=== PATIENT | female | born 2000 | race Caucasian/White ===

== ENCOUNTER 2023-09-05 09:00 | Emergency (ER) | payer MEDICAID ==
[2023-09-05 09:15] VITALS: BP 126/86; TEMP 98.6
--- NOTE | 2023-09-05 09:19 | ERPHSYRPT ---
- History of Present Illness Time Seen by Provider: 09/05/23 09:19 Source: patient Exam Limitations: no limitations Patient Subjective Stated Complaint: Pt states that she has had a migraine for the past 5 days Triage Nursing Assessment: Pt was brought to the ER by her srikanth ortiz, rates pain as 8/10 and states that it does go up to a 10, pt denies N&V, pt states that she has some dizziness, reports getting migraines but only takes IBU but has not taken anything since yesterday evening, pulses normal, skin n/w/d, doesn't appear to be in any distress Physician History: This is a 23-year-old white female who presents with migraine headache type pain. It is intense and much worse than her other migraine headaches. The pain is intermittently localized in various locations the back of her head neck and frontal area. She has discomfort in her eyes with lights and discomfort in her head with loud noises. Patient last took ibuprofen yesterday without benefit. She denies chest pain. She denies shortness of breath. Timing/Duration: day(s) (5) Head Pain Location: frontal, temporal, occipital Severity of Pain-Max: moderate Severity of Pain-Current: moderate Recent Head Trauma: no recent headache/trauma Modifying Factors: Improves With: exposure to light (Worsens), noise (Worsens) Associated Symptoms: sensitive to light, No loss of consciousness, No neck pain, No stiff neck Previous symptoms: same symptoms as today (But pain is much worse) Allergies/Adverse Reactions: No Known Drug Allergies Allergy (Verified 09/05/23 09:15) Home Medications: No Reportable Medications [No Reported Medications] 09/05/23 [History] Immunizations Up to Date: Yes Travel Risk - International Travel Have you traveled outside of the country in past 3 weeks: No - Coronavirus Screening Are you exhibiting any of the following symptoms?: No - Vaccine Status Have you recieved a Covid-19 vaccination: No - Review of Systems Constitutional: No Symptoms Eyes: No Symptoms Ears, Nose, & Throat: No Symptoms Respiratory: No Symptoms Cardiac: No Symptoms Abdominal/Gastrointestinal: No Symptoms Genitourinary Symptoms: No Symptoms Musculoskeletal: No Symptoms Skin: No Symptoms Neurological: Headache Psychological: No Symptoms Endocrine: No Symptoms Hematologic/Lymphatic: No Symptoms Immunological/Allergic: No Symptoms All Other Systems: Reviewed and Negative - Past Medical History Pertinent Past Medical History: Yes History: Other Other Medical History: anemic while and required transfusions. kidney stones causing hyrdornephrosis - Past Surgical History Past Surgical History: No - Social History Smoking Status: Former smoker Exposure to second hand smoke: No Drug Use: none Patient Lives Alone: No - Female History Hx Last Menstrual Period: 2 weeks ago Hx Now: No (IUD) - Nursing Vital Signs Nursing Vital Signs: Initial Vital Signs Temperature 98.6 F 09/05/23 09:06 Pulse Rate 87 09/05/23 09:06 Blood Pressure 126/86 09/05/23 09:06 O2 Sat by Pulse Oximetry 100 09/05/23 09:06 Pain Scale Pain Intensity 8 - Physical Exam General Appearance: no apparent distress, alert, anxiety Eye Exam: PERRL/EOMI, eyes nml inspection Ears, Nose, Throat Exam: normal ENT inspection, moist mucous membranes Neck Exam: normal inspection, non-tender, supple, full range of motion Respiratory Exam: normal breath sounds, lungs clear, No chest tenderness, No respiratory distress Cardiovascular Exam: regular rate/rhythm, normal heart sounds, normal peripheral pulses Gastrointestinal/Abdominal Exam: No tenderness Back Exam: normal inspection, normal range of motion, No CVA tenderness Extremity Exam: normal inspection, normal range of motion, pelvis stable Mental Status Exam: alert, oriented x 3, 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 The level complexity in the work-up performed based on review of the patient's past medical history, review the patient's medication list, review of the patient's drug allergy list, history of present illness and physical findings on examination. The work-up in this patient does not require any laboratory studies but we will order a CT scan of the head without contrast. Blood Culture(s) Obtained: No Antibiotics given: No Counseled pt/family regarding: diagnosis, need for follow-up, rad results Medical Desision Making - Independent Historian Additional History obtained from: Family - Diagnostic Testing Diagnostic test were ordered, analyzed, and reviewed by me: Yes Radiological Interpretation: Reviewed by me, Teleradiologist Report - Risk of complications Minimal Risk: Minimal risk of morbidity - Departure Departure Disposition: Home Clinical Impression: Migraine headache Condition: Stable Critical Care Time: No Additional Instructions: Use Tylenol and ibuprofen for persistent headache pain. We provided you with a list of providers that are accepting patients. Contact 1 of these providers to obtain appointment for further evaluation management.
--- NOTE | 2023-09-05 09:54 | XRAY ---
Indication: Headache. Multiple contiguous axial images obtained through the head without contrast. Comparison: None Beam artifact from left ear jewelry which patient could not remove. Grossly normal appearing brain parenchyma, ventricles, and bony calvarium. Visualized paranasal sinuses and mastoid air cells are clear. Impression: Beam artifact. No gross acute intracranial abnormalities.
[2023-09-05 10:10] VITALS: PULSE 77
[2023-09-05 10:11] VITALS: O2SAT 100
[2023-09-05] MEDS ORDERED: TORAdol 30 mg Injection ONE (10:15)
[2023-09-05] MEDS ORDERED: Compazine 10 MG/2 ML ONE (10:15)
[2023-09-05] MEDS ORDERED: BENADRYL 50 MG/ML ONE (10:15)
[2023-09-05] MEDS ORDERED: NORCO 5/325 MG ONE (10:15)
[2023-09-05] MEDS: Compazine 10 MG/2 ML IM ONE (10:16)
[2023-09-05] MEDS: BENADRYL 50 MG/ML IM ONE (10:16)
[2023-09-05] MEDS: NORCO 5/325 MG PO ONE (10:17)
[2023-09-05] MEDS: TORAdol 30 mg Injection IM ONE (10:17)
== END 2023-09-05 10:45 | disposition home or self-care (01) ==
LOC: ED 09:00
DX: G43.909 Migraine, unspecified, not intractable, without status migrainosus (principal); Z28.310 Unvaccinated for COVID-19
CPT/HCPCS: 70450; 96372; 99283; J1200; J1885; A9270-GY

== ENCOUNTER 2025-02-17 19:28 | Emergency (ER) | payer BC, OTHER ==
[2025-02-17 21:28] VITALS: RESP 16; TEMP 97.7; O2SAT 100
--- NOTE | 2025-02-17 21:51 | ERPHSYRPT ---
- History of Present Illness Time Seen by Provider: 02/17/25 21:20 Source: patient Exam Limitations: no limitations Patient Subjective Stated Complaint: pt states that she found a tick on her stomach. pt states that the rash is getting worse. pt states that her OB doctor prescribed her amoxicillin but she is unable to keep it down Triage Nursing Assessment: pt ambulated into the er; pt is axo x4; c/o rash; pt denies pain; pt states itching to LUQ; rash present to LUQ; no respiratory distress present; vitals wnl Physician History: 24-year-old female currently 14 weeks presents to our ED for evaluation. Patient is concerned as she was diagnosed with a tick bite and erythema migrans. Patient was prescribed amoxicillin 500 mg 3 times a day for 14 days by her [employer] physician. Patient states that the amoxicillin has been causing her to vomit approximately 30 minutes after ingesting. No other systemic manifestations. Patient has not taken the amoxicillin because of the vomiting. Patient states that the erythema migrans has gotten somewhat worse. Patient has no systemic manifestations otherwise. Patient was able to hold down her last dose of amoxicillin. However she is concerned with the vomiting that occurs about 30 minutes afterwards. Patient otherwise feels well. She is not having any complications with regard to her . No abdominal pain pelvic cramping or discharge. Significant other at bedside. They voiced no other complaints or concerns at this time. Portions of this note were created with voice recognition technology. There may be grammatical, spelling, punctuation or sound alike errors Timing/Duration: today Severity: moderate Modifying Factors: Improves With: nothing Associated Symptoms: denies symptoms Allergies/Adverse Reactions: No Known Drug Allergies Allergy (Verified 08/14/24 14:48) Home Medications: Amoxicillin 500 mg PO TID 02/17/25 [History] Hx Tetanus, Diphtheria Vaccination/Date Given: No Hx Influenza Vaccination/Date Given: No Hx Pneumococcal Vaccination/Date Given: No Travel Risk - International Travel Have you traveled outside of the country in past 3 weeks: No - Emerging Infectious Disease Are you exhibiting symptoms associated with any current EIDs: No - Review of Systems Constitutional: No Symptoms, No Fever, No Chills Eyes: No Symptoms Ears, Nose, & Throat: No Symptoms Respiratory: No Symptoms, No Cough, No Dyspnea Cardiac: No Symptoms, No Chest Pain, No Edema, No Syncope Abdominal/Gastrointestinal: No Symptoms, No Abdominal Pain, No Nausea, No Vomiting, No Diarrhea Genitourinary Symptoms: No Symptoms, No Dysuria Musculoskeletal: No Symptoms, No Back Pain, No Neck Pain Skin: No Symptoms, No Rash Neurological: No Symptoms, No Dizziness, No Focal Weakness, No Sensory Changes Psychological: No Symptoms Endocrine: No Symptoms Hematologic/Lymphatic: No Symptoms Immunological/Allergic: No Symptoms All Other Systems: Reviewed and Negative - Past Medical History Pertinent Past Medical History: Yes Neurological History: No Pertinent History ENT History: No Pertinent History Cardiac History: No Pertinent History Respiratory History: No Pertinent History Endocrine Medical History: No Pertinent History Musculoskeletal History: No Pertinent History GI Medical History: No Pertinent History History: No Pertinent History, Other Psycho-Social History: No Pertinent History Female Reproductive Disorders: No Pertinent History Other Medical History: anemic while and required transfusions. kidney stones causing hyrdornephrosis - Past Surgical History Past Surgical History: Yes Neuro Surgical History: No Pertinent History Cardiac: No Pertinent History Respiratory: No Pertinent History Gastrointestinal: No Pertinent History Genitourinary: Other Other Surgical History: Breast augmentation - Female History Hx Now: Yes Gestational Age: 14 weeks - Social History Smoking Status: Former smoker Exposure to second hand smoke: No Drug Use: none - Social Determinants of Health Will the patient participate in the screening: Yes Do you worry about a steady place to live?: No Do you have any problems with any of the following?: No known problems In the past 12 months,have you had to go without utilities?: No Transportation Issues: No Has anyone in your support network made you feel unsafe?: No Have you or anyone in your house had to go w/o enough food: No - Nursing Vital Signs Nursing Vital Signs: Initial Vital Signs Pulse Rate 89 02/17/25 21:14 Blood Pressure 126/74 02/17/25 21:14 O2 Sat by Pulse Oximetry 100 02/17/25 21:14 Pain Scale Pain Intensity 0 - Physical Exam General Appearance: no apparent distress, alert Eye Exam: PERRL/EOMI, eyes nml inspection Ears, Nose, Throat Exam: normal ENT inspection, TMs normal, pharynx normal, moist mucous membranes Neck Exam: normal inspection, non-tender, supple, full range of motion Respiratory Exam: normal breath sounds, lungs clear, airway intact, No respiratory distress Cardiovascular Exam: regular rate/rhythm, normal heart sounds, normal peripheral pulses Gastrointestinal/Abdomen Exam: soft, normal bowel sounds, No tenderness, No mass Back Exam: normal inspection, normal range of motion, No CVA tenderness, No vertebral tenderness Extremity Exam: normal inspection, normal range of motion, pelvis stable Neurologic Exam: alert, oriented x 3, cooperative, normal mood/affect, nml cerebellar function, nml station & gait, sensation nml, No motor deficits Skin Exam: normal color, warm, dry, other (Left flank erythema migrans observed. Patient states the area is somewhat itchy. Overlying soft tissue intact. No open or draining lesions. No superimposed cellulitis), No rash Lymphatic Exam: No adenopathy SpO2 Interpretation: normal SpO2: 100 O2 Delivery: Room Air - Course Nursing assessment & vital signs reviewed: Yes Ordered Tests: Medication Summary Discontinued Medications Generic Name Dose Route Start Last Admin Trade Name Freq PRN Reason Stop Dose Admin Ondansetron HCl 4 mg 02/17/25 21:48 Zofran 4 Mg/Udtablet Orally Disintegrating PO 02/17/25 21:49 STAT ONE - Progress Progress: improved Progress Note: I spoke to . We will give patient Zofran for home. A prescription for Zofran will be forwarded to patient's pharmacy. We will continue the amoxicillin 500 3 times daily for 14 days. Patient will follow-up with tomorrow for reevaluation. No indication for further workup at this time. Patient voices no other complaints or concerns at this time. I spoke to at approximately 9:30 PM. Portions of this note were created with voice recognition technology. There may be grammatical, spelling, punctuation or sound alike errors Complexity of problem addressed is moderate acute complicated. No critical care time. Complexity of data reviewed and analyzed is none. No specialized testing ordered. Diagnosis made based on history and physical exam. Risk of complication and or risk of morbidity/mortality of patient management is mo derate. A prescription for Zofran forwarded to patient's pharmacy. Vital stable. Time spent to discharge patient is approximately 10 minutes. Plan of care established for shared decision making. No social determinants of health present to impede follow-up. Portions of this note were created with voice recognition technology. There may be grammatical, spelling, punctuation or sound alike errors 02/17/25 21:56 Counseled pt/family regarding: diagnosis, need for follow-up - Departure Departure Disposition: Home Clinical Impression: Vomiting, Erythema migrans (Lyme disease), Tick bite Condition: Stable Critical Care Time: No Referrals: DOCTOR,NO FAMILY [Primary Care Provider] - Follow up/PCP as directed Additional Instructions: Please call in the morning for follow-up. Discharge/Care Plan EDOUARDAARONJEFF was seen on 02/17/25 in the Emergency Room. The patient was counseled regarding Diagnosis,Lab results, Imaging studies, need for follow up and when to return to the Emergency Room. Prescriptions given: Discharge Note I have spoken with the patient and/or caregivers. I have explained the patient's condition, diagnosis and treatment plan based on the information available to me at this time. I have answered the patient's and/or caregiver's questions and addressed any concerns. The patient and/or caregivers have as good understanding of the patient's diagnosis, condition and treatment plan as can be expected at this point. The vital signs have been stable. The patient's condition is stable and appropriate for discharge from the emergency department. The patient will pursue further outpatient evaluation with the primary care physician or other designated or consulting physician as outlined in the discharge instructions. The patient and/or caregivers are agreeable to this plan of care and follow-up instructions have been explained in detail. The patient and/or caregivers have received these instruction. The patient/and or caregivers are aware that any significant change in condition or worsening of symptoms should prompt an immediate return to this or the closest emergency department or call 911. Prescriptions: Ondansetron ODT 4 MG [Zofran Odt 4 mg] 4 mg PO Q6H PRN PRN #10 tablet PRN Reason: Vomiting
[2025-02-17] MEDS ORDERED: ZOFRAN ODT 4 MG ONE (21:53)
[2025-02-17] MEDS: ZOFRAN ODT 4 MG PO ONE (21:56)
[2025-02-17 22:02] VITALS: BP 114/73; PULSE 79
== END 2025-02-17 22:06 | disposition home or self-care (01) ==
LOC: ED 19:28
DX: A69.20 Lyme disease, unspecified (principal); S30.861A Insect bite (nonvenomous) of abdominal wall, initial encounter; W57.XXXA Bitten or stung by nonvenomous insect and other nonvenomous arthropods, initial encounter; Z33.1 Pregnant state, incidental; Z79.899 Other long term (current) drug therapy
CPT/HCPCS: 99283; Q0162

== ENCOUNTER 2025-04-10 12:21 | Emergency (ER) | payer BC ==
[2025-04-10 12:39] VITALS: TEMP 97.9
--- NOTE | 2025-04-10 12:58 | ERPHSYRPT ---
- History of Present Illness Time Seen by Provider: 04/10/25 12:22 Source: patient Exam Limitations: no limitations Patient Subjective Stated Complaint: Pt reports today she started vomiting and having dizziness. Has had diarrhea for approx 2 weeks. Denies any fevers.Reports she is 21 weeks , Dr Hamilton is her OB. Triage Nursing Assessment: Pt alert and oriented x3. Respirations easy/nonlabored. Skin w/p/d. Ambulated to ED cot without difficulty. Physician History: Patient is here with dizziness and vomiting. Patient is 21 weeks . No falls no trauma. States that she has felt the baby move. No abdominal pain, vaginal bleeding or other abdominal, related complaints. States that she has been having some ongoing dizziness throughout this . She is due to get an iron infusion on 04/23. She does follow with Dr. Hamilton. No injuries, falls, trauma. Patient is taking PO well. Same number of urinations and defecations. The patient has no signs of altered mental status, nuchal rigidity, signs of meningitis. The patient is up-to-date on all vaccinations. Allergies/Adverse Reactions: No Known Drug Allergies Allergy (Verified 08/14/24 14:48) Home Medications: Pnv No.103/Folic/Om3s/Fish Oil [ Gummies] 1 tab PO DAILY 04/10/25 [History] Hx Tetanus, Diphtheria Vaccination/Date Given: No Hx Influenza Vaccination/Date Given: No Hx Pneumococcal Vaccination/Date Given: No Travel Risk - International Travel Have you traveled outside of the country in past 3 weeks: No - Emerging Infectious Disease Are you exhibiting symptoms associated with any current EIDs: Yes Symptoms: Diarrhea, Vomitting - Past Medical History Pertinent Past Medical History: Yes Neurological History: No Pertinent History ENT History: No Pertinent History Cardiac History: No Pertinent History Respiratory History: No Pertinent History Endocrine Medical History: No Pertinent History Musculoskeletal History: No Pertinent History GI Medical History: No Pertinent History History: No Pertinent History, Other Psycho-Social History: No Pertinent History Female Reproductive Disorders: No Pertinent History Other Medical History: anemic while and required transfusions. kidney stones causing hyrdornephrosis - Past Surgical History Past Surgical History: Yes Neuro Surgical History: No Pertinent History Cardiac: No Pertinent History Respiratory: No Pertinent History Gastrointestinal: No Pertinent History Genitourinary: Other Other Surgical History: Breast augmentation - Female History Hx Now: Yes Gestational Age: 21 weeks - Social History Smoking Status: Never smoker Exposure to second hand smoke: No Drug Use: none - Social Determinants of Health Will the patient participate in the screening: Declined to provide - Nursing Vital Signs Nursing Vital Signs: Initial Vital Signs Temperature 97.9 F 04/10/25 12:30 Pulse Rate 83 04/10/25 12:30 Respiratory Rate 17 04/10/25 12:30 Blood Pressure 120/67 04/10/25 12:30 O2 Sat by Pulse Oximetry 98 04/10/25 12:30 Pain Scale Pain Intensity 0 - Physical Exam SpO2 Interpretation: normal SpO2: 98 Comments: 04/10/25 13:02 Review of Systems Constitutional: Negative for fever. HENT: Negative for congestion. Respiratory: Negative for shortness of breath. Cardiovascular: Negative for chest pain. Gastrointestinal: Negative for abdominal pain. Genitourinary: Negative for dysuria. Musculoskeletal: Negative for back pain. Skin: Negative for rash. Neurological: Negative for headaches. Dizziness Psychiatric/Behavioral: Negative for behavioral problems. All other systems reviewed and are negative. Physical Exam Vitals signs and nursing note reviewed. Constitutional: Appearance: Patient is well-developed. HENT: Head: Normocephalic and atraumatic. Eyes: Conjunctiva/sclera: Conjunctivae normal. Neck: Musculoskeletal: Normal range of motion. Trachea: No tracheal deviation. Cardiovascular: Rate and Rhythm: Normal rate. Heart sounds normal. Pulmonary: Effort: Pulmonary effort is normal. No respiratory distress. Abdominal: Palpations: Abdomen is soft. Exam consistent with 21-week weeks Musculoskeletal: General: No deformity. Skin: General: Skin is warm and dry. Neurological/ Psychiatric: Mental Status: Mental status, behavior, interaction with environment is appropriate for patient's age and condition Motor: Patient lifts arms against gravity. Muscle strength and tone are normal Reflexes: Intact major reflexes Sensory: Light touch sensation intact throughout upper and lower extremities Coordination: Rapid alternating movements are intact. Normal [id number] Gait/Stance: Posture is normal, patient is sitting up in bed with normal strength - Course Nursing assessment & vital signs reviewed: Yes Ordered Tests: Active Orders 24 hr Category Date Time Status EKG-ER Only STAT Care 04/10/25 13:04 Active IV Insertion STAT Care 04/10/25 12:48 Active CBC W DIFF Stat Lab 04/10/25 13:07 Completed CMP Stat Lab 04/10/25 13:07 Completed CULTURE,URINE Stat Lab 04/10/25 13:19 Received UA W/RFX UR CULTURE Stat Lab 04/10/25 13:19 Completed Medication Summary Discontinued Medications Generic Name Dose Route Start Last Admin Trade Name Lyssa PRN Reason Stop Dose Admin Sodium Chloride 1,000 mls @ 999 mls/hr 04/10/25 12:48 04/10/25 14:16 Sodium Chloride 0.9% 1000 Ml IV 04/10/25 13:48 Infused .Q1H1M STA Infusion Sodium Chloride Confirm 04/10/25 13:04 Sodium Chloride 0.9% 1000 Ml Administered 04/10/25 13:05 Dose 1,000 mls @ ud .ROUTE .STK-MED ONE Ondansetron HCl 8 mg 04/10/25 12:48 04/10/25 13:06 Ondansetron Hcl 4 Mg/2 Ml Vial IV 04/10/25 12:49 8 mg STAT ONE Administration Ondansetron HCl Confirm 04/10/25 13:04 Ondansetron Hcl 4 Mg/2 Ml Vial Administered 04/10/25 13:05 Dose 4 mg .ROUTE .STK-MED ONE Ondansetron HCl Confirm 04/10/25 13:07 Ondansetron Hcl 4 Mg/2 Ml Vial Administered 04/10/25 13:08 Dose 4 mg .ROUTE .STK-MED ONE Lab/Rad Data: Laboratory Result Diagrams 04/10/25 13:07 04/10/25 13:07 Laboratory Results 04/10/25 04/10/25 04/10/25 Range/Units 13:19 13:07 13:07 WBC 7.4 (3.98-10.04) x10^3/uL RBC 3.59 L (3.93-5.22) x10^6/uL Hgb 10.3 L (11.2-15.7) g/dL Hct 31.4 L (34.1-44.9) % MCV 87.5 (79.4-94.8) fL MCH 28.7 (25.6-32.2) pg MCHC 32.8 (32.2-35.5) g/dL RDW 13.3 (11.7-14.4) % Plt Count 203 (182-369) x10^3/uL MPV 10.9 (9.4-12.3) fL Gran % 74.4 H (34.0-71.1) % Immature Gran % (Auto) 0.4 (0.001-0.429) % Nucleat RBC Rel Count 0.0 (0.00-0.2) % Eos # (Auto) 0.02 L (0.04-0.36) x10^3/uL Immature Gran # (Auto) 0.03 (0.001-0.031) x10^3u/L Absolute Lymphs (auto) 1.40 (1.18-3.74) x10^3/uL Absolute Monos (auto) 0.43 (0.24-0.86) x10^3/uL Absolute Nucleated RBC 0.00 (0.00-0.012) x10^3u/L Lymphocytes % 19.0 L (19.3-51.7) % Monocytes % 5.8 (4.7-12.5) % Eosinophils % 0.3 L (0.7-5.8) % Basophils % 0.1 (0.1-1.2) % Absolute Granulocytes 5.47 (1.56-6.13) x10^3/uL Basophils # 0.01 (0.01-0.08) x10^3/uL Sodium 136 (135-145) mmol/L Potassium 3.6 (3.5-5.1) mmol/L Chloride 103 (98-107) mmol/L Carbon Dioxide 24 (22-30) mmol/L Anion Gap 11.4 (5-15) MEQ/L BUN 7 (7-17) mg/dL Creatinine 0.54 (0.52-1.04) mg/dL Estimated GFR 130.1 ML/MIN Glucose 81 (74-106) mg/dL Calcium 9.8 (8.4-10.2) mg/dL Total Bilirubin 0.30 (0.2-1.3) mg/dL AST 33 (14-36) U/L ALT 19 (0-35) U/L Alkaline Phosphatase 70 (38-126) U/L Serum Total Protein 7.2 (6.3-8.2) g/dL Albumin 4.1 (3.5-5.0) g/dL Urine Color Dark Yellow A (Yellow) Urine Appearance Cloudy A (Clear) Urine pH 6.5 (4.6-8.0) Ur Specific [place] 1.020 (1.005-1.030) Urine Protein Negative (Negative) Urine Glucose (UA) Negative (Negative) mg/dL Urine Ketones Negative (Negative) Urine Blood Negative (Negative) Urine Nitrite Negative (Negative) Urine Bilirubin Negative (Negative) Urine Urobilinogen 0.2 (0.2) mg/dL Ur Leukocyte Esterase Moderate A (Negative) U Hyaline Cast (Auto) 3-5 A (0-2) /LPF Urine Microscopic RBC 0-2 (0-5) /HPF Urine Microscopic WBC 11-20 A (0-5) /HPF Ur Epithelial Cells Few (None Seen) /HPF Urine Bacteria Many A (None Seen) /HPF Urine Culture Reflexed YES (NO) - Progress Progress: improved Progress Note: 04/10/25 13:03 Differential diagnosis includes neurological issue, anemia, UTI, other infection, related complaint, arrhythmia Low suspicion for stroke, head bleed, other sinister brain pathology. This is due to a normal neuroexam, other diagnosis is being more likely. Will obtain EKG, basic labs, fluids, Zofran, UA. Likely reach out to patient's CONSULTING SERVICES MANAGER today. 04/10/25 14:39 Patient states that she feels completely resolved with fluids and Zofran here. She continued to have no abdominal pain or vaginal bleeding. EKG demonstrates sinus rhythm, rate of 72, SC interval 174, QRS 78, QTc is 425, no STEMI or other ST changes my interpretation. Lower suspicion for electrolyte abnormality, arrhythmia based on history, physical, lab results as above. I did discuss over the phone at 1400 with the patient's CONSULTING SERVICES MANAGER, Dr. Hamilton. We went over all results, history, physical. He did recommend treating the UA as a UTI today. Urine culture sent. He recommended Macrobid 500 mg twice daily x 7 days. He also recommended starting patient on iron given history of iron deficiency anemia. Patient is due for another transfusion at the end of this month. Patient states that she is supposed to be on iron but gets nauseous with it. Therefore I will discharge her home with a prescription for Zofran as well. I did send in a prescription for a vitamin for the patient. She should take this in case she is unable to take her full iron pill as there is iron in this vitamin. Patient states her understanding will follow-up with her CONSULTING SERVICES MANAGER early next week. She should return here anytime for new or changing symptoms this weekend. Counseled pt/family regarding: lab results, diagnosis, need for follow-up - Departure Departure Disposition: Home Clinical Impression: Low iron, greater than 20 weeks gestation, UTI (urinary tract infection), Nausea Condition: Stable Critical Care Time: No Referrals: DOCTOR,NO FAMILY [Primary Care Provider, UNKNOWN] - Follow up/PCP as directed Instructions: Dizziness, Nonvertigo, (DC) Prescriptions: Ondansetron ODT 4 MG [Zofran Odt 4 mg] 4 mg PO Q6H PRN PRN #30 tablet PRN Reason: Vomiting Iron Chelate/Vit B12/Folic AC [Ferractiv Iron 27 mg Formula] 1 each PO BID 14 Days #28 cap Nitrofurantoin Macro 100 mg [Macrobid 100MG Capsule] 100 mg PO BID 7 Days #14 cap
[2025-04-10] MEDS ORDERED: Sodium Chloride 0.9% 1000 ML 1,000 ML ONE (13:04)
[2025-04-10] MEDS ORDERED: Zofran 4 MG/2 ML VIAL ONE ×2 (13:04→13:07)
[2025-04-10] MEDS: Zofran 4 MG/2 ML VIAL IV ONE (13:06)
[2025-04-10 13:07] LABS: Absolute Neutrophil Ct (ANC) 5.47 x10^3/uL (1.56-6.13); BASOPHIL % 0.1 % (0.1-1.2); Basophil (Absolute #) 0.01 x10^3/uL (0.01-0.08); Eosinophil % 0.3 % (0.7-5.8); Eosinophil (Absolute #) 0.02 x10^3/uL (0.04-0.36); Hematocrit 31.4 % (34.1-44.9); Hemoglobin 10.3 g/dL (11.2-15.7); IMMATURE GRAN # 0.03 x10^3u/L (0.001-0.031); IMMATURE GRAN % 0.4 % (0.001-0.429); Mean Cell Volume 87.5 fL (79.4-94.8); Mean Corpuscular Hemoglobin 28.7 pg (25.6-32.2); Mean Corpuscular Hgb Concent. 32.8 g/dL (32.2-35.5); Mean Platelet Volume 10.9 fL (9.4-12.3); Monocyte (Absolute #) 0.43 x10^3/uL (0.24-0.86); Monocytes % 5.8 % (4.7-12.5); Neutrophil % 74.4 % (34.0-71.1); Platelet Count 203 x10^3/uL (182-369); Red Blood Count 3.59 x10^6/uL (3.93-5.22); Red Cell Distribution Width 13.3 % (11.7-14.4); White Blood Count 7.4 x10^3/uL (3.98-10.04)
[2025-04-10] MEDS: Sodium Chloride 0.9% 1000 ML 1,000 ML IV STA (13:08)
[2025-04-10 13:21] LABS: ALBUMIN 4.1 g/dL (3.5-5.0); ANION GAP 11.4 MEQ/L (5-15); BILIRUBIN,TOTAL 0.3 mg/dL (0.2-1.3); Calcium 9.8 mg/dL (8.4-10.2); Creatinine 1 0.54 mg/dL (0.52-1.04); EST GLOMERULAR FILTRATION RATE 130.1 ML/MIN; Potassium 3.6 mmol/L (3.5-5.1); Total Protein 7.2 g/dL (6.3-8.2)
[2025-04-10 13:38] VITALS: RESP 16
[2025-04-10 13:54] LABS: Appearance Cloudy (Clear); Bacteria Many /HPF (None Seen); Bilirubin Negative (Negative); Blood Negative (Negative); Epithelial Cells Few /HPF (None Seen); Glucose, Urine Negative (Negative); Ketones Negative (Negative); Leukocyte Esterase Moderate (Negative); Nitrite Negative (Negative); Ph 6.5 (4.6-8.0); Protein,Urine Dip Negative (Negative); RBC 0-2 /HPF (0-5); Urobilinogen 0.2 mg/dL (0.2)
[2025-04-10 14:09] VITALS: BP 103/64
[2025-04-10 14:29] VITALS: O2SAT 98
[2025-04-10 14:37] VITALS: PULSE 71
== END 2025-04-10 14:37 | disposition home or self-care (01) ==
LOC: ED 12:21
DX: O99.891 Other specified diseases and conditions complicating pregnancy (principal); O99.012 Anemia complicating pregnancy, second trimester; D50.9 Iron deficiency anemia, unspecified; Z3A.21 21 weeks gestation of pregnancy; R11.0 Nausea; Z79.899 Other long term (current) drug therapy
CPT/HCPCS: 36415; 80053; 81001; 85025; 87086; 93005; 96361; 96374; 99284; J2405

== ENCOUNTER 2025-08-10 17:50 | Inpatient (IN) | payer BC ==
[2025-08-10] MEDS ORDERED: XYLOCAINE 1% HCL 20 ML MDV IJ PRN (18:10)
[2025-08-10] MEDS ORDERED: TYLENOL EXTRA STRENGTH 500 MG PO PRN (18:10)
[2025-08-10] MEDS ORDERED: Nubain 10 MG/ML IV PRN (18:10)
[2025-08-10] MEDS ORDERED: STADOL 2 MG IV PRN (18:10)
[2025-08-10 18:21] LABS: AMNISURE TEST RESULTS POSITIVE (NEGATIVE)
[2025-08-10 18:22] LABS: Glucose, Urine Negative (Negative); Protein,Urine Dip Trace (Negative); RBC 21-50 /HPF (0-5)
[2025-08-10] MEDS ORDERED: PITOCIN 30 UNITS/ LR 500 ML 30 UNITS/500 ML PLAST..BAG IV SCH (18:30)
[2025-08-10 18:53] LABS: Amphetamine,Urine NEGATIVE (NEGATIVE); Barbiturate,Urine NEGATIVE (NEGATIVE); Benzodiazepine,Urine NEGATIVE (NEGATIVE); Cocaine,Urine NEGATIVE (NEGATIVE); Methadone,Urine NEGATIVE (NEGATIVE); Opiate,Urine NEGATIVE (NEGATIVE); PCP,Urine NEGATIVE (NEGATIVE); THC,Urine NEGATIVE (NEGATIVE)
[2025-08-10 19:07] LABS: BASOPHIL % 0.1 % (0.1-1.2); Basophil (Absolute #) 0.01 x10^3/uL (0.01-0.08); Eosinophil (Absolute #) 0.01 x10^3/uL (0.04-0.36); Hematocrit 27.1 % (34.1-44.9); Hemoglobin 8.2 g/dL (11.2-15.7); IMMATURE GRAN # 0.06 x10^3u/L (0.001-0.031); IMMATURE GRAN % 0.5 % (0.001-0.429); Lymphocyte (Absolute #) 1.92 x10^3/uL (1.18-3.74); Mean Corpuscular Hemoglobin 24.4 pg (25.6-32.2); Mean Corpuscular Hgb Concent. 30.3 g/dL (32.2-35.5); Monocyte (Absolute #) 0.57 x10^3/uL (0.24-0.86); NUCLEATED RBC # 0.00 x10^3u/L (0.00-0.012); NUCLEATED RBC % 0.0 % (0.00-0.2); Platelet Count 196 x10^3/uL (182-369); Red Blood Count 3.36 x10^6/uL (3.93-5.22); White Blood Count 12.2 x10^3/uL (3.98-10.04)
[2025-08-10 19:44] LABS: ABO TYPING O; RH TYPING POSITIVE
[2025-08-10] MEDS ORDERED: Lactated Ringers 1,000 ML IV ONE (20:26)
[2025-08-10] MEDS: Lactated Ringers 1,000 ML IV SCH (21:30)
[2025-08-10] MEDS: Lactated Ringers 1,000 ML IV ONE (23:15)
[2025-08-11] MEDS: FENTANYL 2 MCG-BUPIV 0.125%-NS 250 ML Epidur 250 ML EPIDURAL SCH (00:06)
[2025-08-11] MEDS: Ephedrine Sulfate 50 MG/ML IV PRN (00:27)
[2025-08-11] MEDS ORDERED: KEFZOL 1 GM ONE (02:22)
[2025-08-11] MEDS ORDERED: Astramorph-Pf 5 MG/10 ML ONE (02:26)
[2025-08-11] MEDS ORDERED: Pitocin 10 UNITS/ML ONE (02:26)
[2025-08-11] MEDS ORDERED: Versed 2 MG/2 ML Injection ONE (02:29)
[2025-08-11] MEDS ORDERED: LANSINOH 40 GM TOP PRN (02:41)
[2025-08-11] MEDS ORDERED: CORTISONE 1% CREAM TP PRN (02:41)
[2025-08-11] MEDS ORDERED: Anucort-HC SUPPOSITORY PR PRN (02:41)
[2025-08-11] MEDS ORDERED: Dulcolax 10 MG SUPP PR PRN (02:41)
[2025-08-11] MEDS ORDERED: XYLOCAINE 2%/Epi 1:200000 20ML VIAL MPF ONE (03:01)
[2025-08-11] MEDS: Dextrose 5%-Lr IV Solution 1000 ML 1,000 ML IV SCH (04:19)
[2025-08-11] MEDS: Zofran 4 MG/2 ML VIAL IV PRN ×2 (04:26→08:11)
[2025-08-11] MEDS ORDERED: MORPHINE SULFATE 2 MG INJ IV PRN (07:56)
[2025-08-11] MEDS ORDERED: Nubain 10 MG/ML IV PRN (07:56)
[2025-08-11] MEDS ORDERED: HOLD NARCOTIC ANALGESICS AND SEDATIVES X24 HR MC PRN (07:56)
[2025-08-11] MEDS ORDERED: Narcan 0.4 MG/ML IV PRN (07:56)
[2025-08-11] MEDS ORDERED: BENADRYL 50 MG/ML IV PRN (07:56)
[2025-08-11] MEDS ORDERED: CLARITIN 10 MG ONE (08:10)
[2025-08-11] MEDS: CLARITIN 10 MG PO PRN (08:11)
[2025-08-11] MEDS: MOTRIN 400 MG PO PRN (11:34)
[2025-08-11 12:32] LABS: BASOPHIL % 0.1 % (0.1-1.2); Basophil (Absolute #) 0.01 x10^3/uL (0.01-0.08); Eosinophil (Absolute #) 0.01 x10^3/uL (0.04-0.36); Hematocrit 22.2 % (34.1-44.9); IMMATURE GRAN # 0.04 x10^3u/L (0.001-0.031); IMMATURE GRAN % 0.4 % (0.001-0.429); Lymphocyte (Absolute #) 1.21 x10^3/uL (1.18-3.74); Mean Corpuscular Hemoglobin 25.3 pg (25.6-32.2); Mean Corpuscular Hgb Concent. 31.1 g/dL (32.2-35.5); Monocyte (Absolute #) 0.43 x10^3/uL (0.24-0.86); NUCLEATED RBC # 0.00 x10^3u/L (0.00-0.012); NUCLEATED RBC % 0.0 % (0.00-0.2); Platelet Count 151 x10^3/uL (182-369); Red Blood Count 2.73 x10^6/uL (3.93-5.22); White Blood Count 10.6 x10^3/uL (3.98-10.04)
[2025-08-11 12:49] LABS: Hemoglobin 6.9 g/dL (11.2-15.7)
[2025-08-11] MEDS: PERCOCET TABLET 5/325MG PO PRN (20:04)
[2025-08-11] MEDS: Mylicon 80MG PO PRN (20:04)
[2025-08-11] MEDS: Docusate Sodium 100 MG PO SCH (20:05)
[2025-08-11 21:47] LABS: CROSS MATCH (PRBC) COMPATIBLE (COMPATIBLE)
[2025-08-11 21:48] LABS: CROSS MATCH (PRBC) COMPATIBLE (COMPATIBLE)
[2025-08-12 02:20] LABS: Hematocrit 26.4 % (34.1-44.9); Mean Corpuscular Hemoglobin 25.9 pg (25.6-32.2); Mean Corpuscular Hgb Concent. 31.8 g/dL (32.2-35.5); Platelet Count 142 x10^3/uL (182-369); Red Blood Count 3.24 x10^6/uL (3.93-5.22); White Blood Count 13.6 x10^3/uL (3.98-10.04)
[2025-08-12 02:21] LABS: Hemoglobin 8.4 g/dL (11.2-15.7)
--- NOTE | 2025-08-12 07:42 | PCM.NOTE ---
Date and Time: 08/12/25 0740 Subjective Assessment: pod 1 sp csection pt resting in bed and doing well able to tolerate diet vss afebrile abd; soft incision dressing intact with no soilage uterus; firm lochia; mild hgb; 8.2 a/p sp csection pod 1 postop anemia 2 units of prbc given will repeat cbc at 10 am today anticipate discharge tomorrow Objective Exam Wound Assessment: Skin/Wound Assessment Wound/Incision Assessment Start: 08/11/25 21:21 Text: Status: Active Freq: Q6H Protocol: Document 08/12/25 02:50 AD (Rec: 08/12/25 02:52 AD [id number]) Wound/Incision Assessment Lower Abdomen Wound Assessment Shift Assessment Wound Type Incision Wound Stage Non Pressure Wound Dressing Status Dry & Intact Drainage Amount Minimal Drainage Description Serosanguineous Drainage Odor None/Absent Surrounding Tissue Tse [place] Primary Dressing Primary surgical dressing Wound Photo Photo Taken No Objective Data Vital Signs: Vital Signs - 24 hr Temp Pulse Resp BP Pulse Ox 08/12/25 02:44 98.2 F 74 18 119/70 99 08/12/25 00:45 110/59 08/12/25 00:40 97.9 F 85 18 92/53 98 08/12/25 00:10 98.0 F 70 17 106/57 99 08/11/25 23:55 98.1 F 69 18 106/61 99 08/11/25 23:45 98.0 F 75 19 102/55 98 08/11/25 22:55 98.6 F 87 17 108/58 08/11/25 22:25 98.5 F 76 17 103/56 98 08/11/25 22:10 98.4 F 81 18 101/69 98 08/11/25 22:07 98.4 F 86 18 101/69 98 08/11/25 21:00 98.3 F 96 H 19 136/62 98 08/11/25 15:00 98.2 F 86 112/69 100 08/11/25 11:00 99 08/11/25 09:00 99 08/11/25 08:00 97.9 F 75 18 125/80 100 Pain Assessment - Last Documented Pain Intensity [Lower] 3 Pain Intensity 6 Pain Scale Used 0-10 Pain Scale Intake and Output: Intake & Output 08/09/25 08/10/25 08/11/25 09/17/25 11:59 11:59 11:59 11:59 Intake Total 9092 1090 Output Total 113 4187 Balance 1327 1058 Weight 78.018 kg Lab Results: Lab Results-Last 24 Hours 08/11/25 08/11/25 08/11/25 Range/Units 12:03 14:06 20:54 WBC 10.6 H (3.98-10.04) x10^3/uL RBC 2.73 L (3.93-5.22) x10^6/uL Hgb 6.9 L* (11.2-15.7) g/dL Hct 22.2 L (34.1-44.9) % MCV 81.3 (79.4-94.8) fL MCH 25.3 L (25.6-32.2) pg MCHC 31.1 L (32.2-35.5) g/dL RDW 14.9 H (11.7-14.4) % Plt Count 151 L (182-369) x10^3/uL MPV 12.1 (9.4-12.3) fL Gran % 84.0 H (34.0-71.1) % Immature Gran % (Auto) 0.4 (0.001-0.429) % Nucleat RBC Rel Count 0.0 (0.00-0.2) % Eos # (Auto) 0.01 L (0.04-0.36) x10^3/uL Immature Gran # (Auto) 0.04 H (0.001-0.031) x10^3u/L Absolute Lymphs (auto) 1.21 (1.18-3.74) x10^3/uL Absolute Monos (auto) 0.43 (0.24-0.86) x10^3/uL Absolute Nucleated RBC 0.00 (0.00-0.012) x10^3u/L Lymphocytes % 11.4 L (19.3-51.7) % Monocytes % 4.0 L (4.7-12.5) % Eosinophils % 0.1 L (0.7-5.8) % Basophils % 0.1 (0.1-1.2) % Absolute Granulocytes 8.93 H (1.56-6.13) x10^3/uL Basophils # 0.01 (0.01-0.08) x10^3/uL POC Glucometer 167 H (74 to 106) mg/dL Crossmatch COMPATIBLE (COMPATIBLE) 08/11/25 08/12/25 Range/Units 20:57 02:10 WBC 13.6 H (3.98-10.04) x10^3/uL RBC 3.24 L (3.93-5.22) x10^6/uL Hgb 8.4 L D (11.2-15.7) g/dL Hct 26.4 L (34.1-44.9) % MCV 81.5 (79.4-94.8) fL MCH 25.9 (25.6-32.2) pg MCHC 31.8 L (32.2-35.5) g/dL RDW 14.6 H (11.7-14.4) % Plt Count 142 L (182-369) x10^3/uL MPV 11.6 (9.4-12.3) fL Gran % (34.0-71.1) % Immature Gran % (Auto) (0.001-0.429) % Nucleat RBC Rel Count (0.00-0.2) % Eos # (Auto) (0.04-0.36) x10^3/uL Immature Gran # (Auto) (0.001-0.031) x10^3u/L Absolute Lymphs (auto) (1.18-3.74) x10^3/uL Absolute Monos (auto) (0.24-0.86) x10^3/uL Absolute Nucleated RBC (0.00-0.012) x10^3u/L Lymphocytes % (19.3-51.7) % Monocytes % (4.7-12.5) % Eosinophils % (0.7-5.8) % Basophils % (0.1-1.2) % Absolute Granulocytes (1.56-6.13) x10^3/uL Basophils # (0.01-0.08) x10^3/uL POC Glucometer (74 to 106) mg/dL Crossmatch COMPATIBLE (COMPATIBLE) Medications: Medications Generic Name Dose Route Start Last Admin Trade Name Freq PRN Reason Stop Dose Admin Acetaminophen 1,000 mg 08/10/25 18:10 Acetaminophen 500 Mg Tablet PO 09/09/25 18:09 Q4H PRN PRN HEADACHE/MILD PAIN/ FEVER Hydrocodone Bitart/Acetaminophen 1 tab 08/12/25 08:00 Hydrocodone/Apap 5/325 1 Tab Tablet PO 08/17/25 07:59 Q4H PRN PRN SEVERE PAIN Bisacodyl 10 mg 08/11/25 02:41 Bisacodyl 10 Mg Supp.Rect UT 09/10/25 02:40 PRN PRN CONSTIPATION Diphenhydramine HCl 12.5 - 25 mg 08/11/25 07:56 Diphenhydramine Hcl 50 Mg/Ml Vial IV 08/12/25 07:55 Q6H PRN PRN ITCHING Docusate Sodium 100 mg 08/11/25 10:00 08/11/25 20:05 Docusate Sodium 100 Mg Capsule PO 09/10/25 09:59 100 mg BID NIKKI Administration Emollient Ointment 0 gm 08/11/25 02:41 Lansinoh 40 Gm Tube TOP 09/10/25 02:40 PRN PRN PAIN Ephedrine Sulfate 10 mg 08/10/25 18:10 08/11/25 00:27 Ephedrine Sulfate 50 Mg/Ml IV 09/09/25 18:09 10 mg PRN PRN Administration SBP<100 Hydrocortisone 0.5 gm 08/11/25 02:41 Hydrocortisone 1% Cream 28 Gm Tube TP 09/10/25 02:40 PRN PRN ITCHING Hydrocortisone Acetate 25 mg 08/11/25 02:41 Hydrocortisone Acetate 25 Mg Supp.Rect UT 09/10/25 02:40 PRN PRN HEMORRHOIDS Lactated Ringer's 1,000 mls @ 125 mls/hr 08/10/25 18:30 08/10/25 21:30 Lactated Ringers IV 09/09/25 18:29 125 mls/hr .Q8H NIKKI Administration FENTANYL/BUPIVACAINE/NS/PF 250 mls @ 0 mls/hr 08/10/25 18:15 08/11/25 00:06 Fentanyl 2 Mcg-Bupiv 0.125%-Ns 250 Ml Epidur EPIDURAL 09/09/25 18:14 12 mls/hr .Q0M NIKKI Administration Protocol Titrate Dextrose/Lactated Ringer's 1,000 mls @ 125 mls/hr 08/11/25 03:00 08/11/25 13:45 Dextrose 5%-Lr Iv Solution 1000 Ml IV 09/10/25 02:59 125 mls/hr .Q8H NIKKI Administration Sodium Chloride 1,000 mls @ 50 mls/hr 08/11/25 22:00 Sodium Chloride 0.9% 1000 Ml IV 08/12/25 08:00 .Q20H NIKKI Ibuprofen 800 mg 08/11/25 02:41 08/12/25 06:36 Ibuprofen 400 Mg Tablet PO 09/10/25 02:40 800 mg Q6H PRN PRN Administration MODERATE PAIN Loratadine 10 mg 08/11/25 07:56 08/11/25 08:11 Loratadine 10 Mg Tablet PO 08/12/25 07:55 10 mg QDP PRN Administration ITCHING Morphine Sulfate 2 mg 08/11/25 07:56 Morphine Sulfate 2 Mg/Ml Inj IV 08/12/25 07:55 .Q30MIN PRN PRN SEVERE PAIN Nalbuphine HCl 5 mg 08/11/25 07:56 Nalbuphine Hcl 10 Mg/Ml Ampul IV 08/12/25 07:55 Q6H PRN PRN ITCHING Naloxone HCl 0.1 mg 08/11/25 07:56 Naloxone Hcl 0.4 Mg/Ml Ml IV 08/12/25 07:55 PRN PRN as needed Non-Formulary Medication 1 each 08/11/25 07:56 Hold Narcotic Analgesics/Sedatives 1 Each Each 08/12/25 07:55 PRN PRN neuraxial orders Ondansetron HCl 4 mg 08/11/25 07:56 08/11/25 08:11 Ondansetron Hcl 4 Mg/2 Ml Vial IV 08/12/25 07:55 4 mg PRN PRN Administration NAUSEA Oxycodone/Acetaminophen 1 - 2 tab 08/11/25 07:56 08/12/25 01:17 Oxycodone Hcl/Apap 5 Mg/325 Mg Tablet PO 08/12/25 07:55 1 tab Q4H PRN PRN Administration MODERATE PAIN Simethicone 80 mg 08/11/25 02:41 08/12/25 06:36 Simethicone 80 Mg Tab.Chew PO 09/10/25 02:40 80 mg QID PRN PRN Administration INDIGESTION Discontinued Medications Generic Name Dose Route Start Last Admin Trade Name Lyssa PRN Reason Stop Dose Admin Butorphanol Tartrate 1 mg 08/10/25 18:10 Butorphanol Tartrate 2 Mg/Ml Vial IV 09/09/25 18:09 Q4H PRN PRN MODERATE PAIN Cefazolin Sodium Confirm 08/11/25 02:22 Cefazolin Sodium 1 Gm Vial Administered 08/11/25 02:23 Dose 2 g .ROUTE .STK-MED ONE Oxytocin/Lactated Ringer's 30 units in 500 mls @ 5 mls/hr 08/10/25 18:30 Pitocin 30 Units/ Lr 500 Ml IV 09/09/25 18:29 .Q24H NIKKI Lactated Ringer's 1,000 mls @ 999 mls/hr 08/10/25 18:10 08/10/25 23:15 Lactated Ringers IV 08/10/25 19:10 999 mls/hr .Q1H1M ONE Administration Lactated Ringer's Confirm 08/10/25 20:26 Lactated Ringers Administered 08/10/25 20:27 Dose 1,000 mls @ ud IV .STK-MED ONE Sodium Chloride Confirm 08/11/25 21:52 Sodium Chloride 0.9% 1000 Ml Administered 08/11/25 21:53 Dose 1,000 mls @ ud .ROUTE .STK-MED ONE Lidocaine HCl 10 ml 08/10/25 18:10 Lidocaine Hcl 1% 20 Ml Mdv 20 Ml Ml IJ 09/09/25 18:09 PRN PRN as needed Lidocaine/Epinephrine Confirm 08/11/25 03:01 Lidocaine Hcl/Epinephrine 2% 20 Ml Vial Mpf Administered 08/11/25 03:02 Dose 20 ml .ROUTE .STK-MED ONE Loratadine Confirm 08/11/25 08:10 Loratadine 10 Mg Tablet Administered 08/11/25 08:11 Dose 10 mg .ROUTE .STK-MED ONE Midazolam HCl Confirm 08/11/25 02:29 Midazolam Hcl 2 Mg/2 Ml Vial Administered 08/11/25 02:30 Dose 2 mg .ROUTE .STK-MED ONE Morphine Sulfate Confirm 08/11/25 02:26 Morphine Sulfate 5 Mg/10 Ml Pf Ampul Administered 08/11/25 02:27 Dose 5 mg .ROUTE .STK-MED ONE Nalbuphine HCl 5 - 10 mg 08/10/25 18:10 Nalbuphine Hcl 10 Mg/Ml Ampul IV 09/09/25 18:09 Q4H PRN PRN labor Ondansetron HCl 4 mg 08/10/25 18:10 08/11/25 04:26 Ondansetron Hcl 4 Mg/2 Ml Vial IV 09/09/25 18:09 4 mg Q4H PRN PRN Administration NAUSEA/VOMITING Oxytocin Confirm 08/11/25 02:26 Oxytocin 10 Units/Ml 10 Units/Ml Vial Administered 08/11/25 02:27 Dose 20 units .ROUTE .STK-MED ONE Assessment/Plan (1) S/P section Current Visit: Yes Status: Acute Code(s): Z98.891 - HISTORY OF UTERINE SCAR FROM PREVIOUS SURGERY (2) Postoperative anemia due to chronic blood loss Current Visit: Yes Status: Acute Code(s): D50.0 - IRON DEFICIENCY ANEMIA SECONDARY TO BLOOD LOSS (CHRONIC)
[2025-08-12] MEDS ORDERED: NORCO 5/325 MG PO PRN (08:00)
[2025-08-12 09:04] LABS: RPR Non Reactive (Non Reactive)
[2025-08-12 10:01] LABS: BASOPHIL % 0.2 % (0.1-1.2); Basophil (Absolute #) 0.03 x10^3/uL (0.01-0.08); Eosinophil (Absolute #) 0.02 x10^3/uL (0.04-0.36); Hematocrit 28.0 % (34.1-44.9); Hemoglobin 8.7 g/dL (11.2-15.7); IMMATURE GRAN # 0.12 x10^3u/L (0.001-0.031); IMMATURE GRAN % 0.9 % (0.001-0.429); Lymphocyte (Absolute #) 1.25 x10^3/uL (1.18-3.74); Mean Corpuscular Hemoglobin 25.4 pg (25.6-32.2); Mean Corpuscular Hgb Concent. 31.1 g/dL (32.2-35.5); Monocyte (Absolute #) 0.64 x10^3/uL (0.24-0.86); NUCLEATED RBC # 0.00 x10^3u/L (0.00-0.012); NUCLEATED RBC % 0.0 % (0.00-0.2); Platelet Count 144 x10^3/uL (182-369); Red Blood Count 3.42 x10^6/uL (3.93-5.22); White Blood Count 13.9 x10^3/uL (3.98-10.04)
--- NOTE | 2025-08-12 10:08 | OP ---
SURGERY DATE/TIME: 08/11/2025 [id number] PREOPERATIVE DIAGNOSES: 1) Nonreassuring heart tones. 2) Term intrauterine . POSTOPERATIVE DIAGNOSES: 1) Nonreassuring heart tones. 2) Term intrauterine . PROCEDURE: Primary low transverse section. SURGEON: Geovanni Rocha MD ANESTHESIA: Epidural by Sanya Ojeda CRNA. ESTIMATED BLOOD LOSS: 500 mL. URINE: There is clear, straw-colored urine in the [place]. SPECIMENS: Placenta was sent for pathology. DESCRIPTION OF PROCEDURE AND FINDINGS: After informed written consent was obtained, the patient was taken to the operating room. She had a previously placed laboring epidural which was dosed by Anesthesia. She was prepped and draped in the usual sterile fashion and adequate level of anesthesia was assessed. Low transverse skin incision was made by knife and carried down through the subcutaneous fat to the level of the fascia. Fascia was nicked on both sides of the midline and extended into horizontal using curved Aleman scissors. Superior free edge of the fascia was grasped with Emmanuelle clamps and the underlying rectus muscles were dissected free. The same was repeated inferiorly. Peritoneal cavity was entered bluntly and extended into horizontal. Horizontal uterine incision was then made by knife, carried down to the level of the amniotic membranes, which had previously been ruptured. A viable female infant with a strong cry was delivered from the vertex presentation. Oropharynx and nares were bulb suctioned free, cord was clamped and cut, and she was handed off to the waiting nursery team. Placenta was manually extracted, then the uterus was exteriorized. Uterine cavity was then sponge curetted clean with lap sponge and uterine incision was closed with #1 chromic in a running locked fashion. Two layers were used to provide good closure and good hemostasis. The posterior cul-de-sac was wiped free of blood and clot with a moist lap sponge, then the uterus was returned to the peritoneal cavity. Lateral gutters were wiped free of blood and clot. The uterine incision was inspected closely and noted to be hemostatic with good closure. Next, the fascia was closed with 0 Vicryl in running fashion. Good closure and good hemostasis were achieved at that level. Subcutaneous fat was irrigated with warm sterile saline, and any areas of bleeding were cauterized with electrocautery. Finally, the skin layer was closed with 4-0 undyed Vicryl in running subcuticular fashion. Steri-Strips and an occlusive dressing were placed over the incision. The patient was transferred to the recovery room in good condition.
[2025-08-13 01:32] VITALS: BP 115/59; PULSE 93; RESP 17; TEMP 98.5; O2SAT 98
--- NOTE | 2025-08-13 07:29 | PCM.NOTE ---
Date and Time: 08/13/25727 Subjective Assessment: pod 2 sp csection pt resting in bed able to ambulate and tolerate diet vss afebrile abd; soft incision c/d/intact uterus; firm lochia; mild hgb; 8.7 a/p sp csection pod 2 stable for discharge today should fu in office in 1 wk Objective Data Vital Signs: Vital Signs - 24 hr Temp Pulse Resp BP Pulse Ox 08/13/25 03:56 98.5 F 93 H 17 115/59 98 08/13/25 00:30 98.5 F 93 H 17 115/59 98 08/12/25 21:04 98.7 F 84 18 122/69 99 08/12/25 18:30 99.1 F 90 20 112/67 98 08/12/25 10:00 98.0 F 84 18 121/78 97 Pain Assessment - Last Documented Pain Intensity [Lower] 3 Pain Intensity 0 Pain Scale Used 0-10 Pain Scale Intake and Output: Intake & Output 08/10/25 08/11/25 08/12/25 08/13/25 11:59 11:59 11:59 11:59 Intake Total 2252 3733 Output Total 925 3900 200 Balance 1327 -167 -200 Weight 78.018 kg Lab Results: Lab Results-Last 24 Hours 08/10/25 08/12/25 Range/Units 19:00 09:50 WBC 13.9 H (3.98-10.04) x10^3/uL RBC 3.42 L (3.93-5.22) x10^6/uL Hgb 8.7 L (11.2-15.7) g/dL Hct 28.0 L (34.1-44.9) % MCV 81.9 (79.4-94.8) fL MCH 25.4 L (25.6-32.2) pg MCHC 31.1 L (32.2-35.5) g/dL RDW 14.7 H (11.7-14.4) % Plt Count 144 L (182-369) x10^3/uL MPV 11.5 (9.4-12.3) fL Gran % 85.2 H (34.0-71.1) % Immature Gran % (Auto) 0.9 H (0.001-0.429) % Nucleat RBC Rel Count 0.0 (0.00-0.2) % Eos # (Auto) 0.02 L (0.04-0.36) x10^3/uL Immature Gran # (Auto) 0.12 H (0.001-0.031) x10^3u/L Absolute Lymphs (auto) 1.25 (1.18-3.74) x10^3/uL Absolute Monos (auto) 0.64 (0.24-0.86) x10^3/uL Absolute Nucleated RBC 0.00 (0.00-0.012) x10^3u/L Lymphocytes % 9.0 L (19.3-51.7) % Monocytes % 4.6 L (4.7-12.5) % Eosinophils % 0.1 L (0.7-5.8) % Basophils % 0.2 (0.1-1.2) % Absolute Granulocytes 11.82 H (1.56-6.13) x10^3/uL Basophils # 0.03 (0.01-0.08) x10^3/uL RPR Non Reactive (Non Reactive) Medications: Medications Generic Name Dose Route Start Last Admin Trade Name Freq PRN Reason Stop Dose Admin Acetaminophen 1,000 mg 08/10/25 18:10 Acetaminophen 500 Mg Tablet PO 09/09/25 18:09 Q4H PRN PRN HEADACHE/MILD PAIN/ FEVER Hydrocodone Bitart/Acetaminophen 1 tab 08/12/25 08:00 Hydrocodone/Apap 5/325 1 Tab Tablet PO 08/17/25 07:59 Q4H PRN PRN SEVERE PAIN Bisacodyl 10 mg 08/11/25 02:41 Bisacodyl 10 Mg Supp.Rect [place] 09/10/25 02:40 PRN PRN CONSTIPATION Docusate Sodium 100 mg 08/11/25 10:00 08/12/25 21:30 Docusate Sodium 100 Mg Capsule PO 09/10/25 09:59 100 mg BID NIKKI Administration Emollient Ointment 0 gm 08/11/25 02:41 Lansinoh 40 Gm Tube TOP 09/10/25 02:40 PRN PRN PAIN Hydrocortisone 0.5 gm 08/11/25 02:41 Hydrocortisone 1% Cream 28 Gm Tube TP 09/10/25 02:40 PRN PRN ITCHING Hydrocortisone Acetate 25 mg 08/11/25 02:41 Hydrocortisone Acetate 25 Mg Supp.Rect [place] 09/10/25 02:40 PRN PRN HEMORRHOIDS Ibuprofen 800 mg 08/11/25 02:41 08/13/25 00:02 Ibuprofen 400 Mg Tablet PO 09/10/25 02:40 800 mg Q6H PRN PRN Administration MODERATE PAIN Simethicone 80 mg 08/11/25 02:41 08/13/25 04:38 Simethicone 80 Mg Tab.Chew PO 09/10/25 02:40 80 mg QID PRN PRN Administration INDIGESTION Discontinued Medications Generic Name Dose Route Start Last Admin Trade Name Freq PRN Reason Stop Dose Admin Butorphanol Tartrate 1 mg 08/10/25 18:10 Butorphanol Tartrate 2 Mg/Ml Vial IV 09/09/25 18:09 Q4H PRN PRN MODERATE PAIN Cefazolin Sodium Confirm 08/11/25 02:22 Cefazolin Sodium 1 Gm Vial Administered 08/11/25 02:23 Dose 2 g .ROUTE .STK-MED ONE Diphenhydramine HCl 12.5 - 25 mg 08/11/25 07:56 Diphenhydramine Hcl 50 Mg/Ml Vial IV 08/12/25 07:55 Q6H PRN PRN ITCHING Ephedrine Sulfate 10 mg 08/10/25 18:10 08/11/25 00:27 Ephedrine Sulfate 50 Mg/Ml IV 09/09/25 18:09 10 mg PRN PRN Administration SBP<100 Lactated Ringer's 1,000 mls @ 125 mls/hr 08/10/25 18:30 08/10/25 21:30 Lactated Ringers IV 09/09/25 18:29 125 mls/hr .Q8H NIKKI Administration Oxytocin/Lactated Ringer's 30 units in 500 mls @ 5 mls/hr 08/10/25 18:30 Pitocin 30 Units/ Lr 500 Ml IV 09/09/25 18:29 .Q24H NIKKI Lactated Ringer's 1,000 mls @ 999 mls/hr 08/10/25 18:10 08/10/25 23:15 Lactated Ringers IV 08/10/25 19:10 999 mls/hr .Q1H1M ONE Administration FENTANYL/BUPIVACAINE/NS/PF 250 mls @ 0 mls/hr 08/10/25 18:15 08/11/25 00:06 Fentanyl 2 Mcg-Bupiv 0.125%-Ns 250 Ml Epidur EPIDURAL 09/09/25 18:14 12 mls/hr .Q0M NIKKI Administration Protocol Titrate Dextrose/Lactated Ringer's 1,000 mls @ 125 mls/hr 08/11/25 03:00 08/11/25 13:45 Dextrose 5%-Lr Iv Solution 1000 Ml IV 09/10/25 02:59 125 mls/hr .Q8H NIKKI Administration Lactated Ringer's Confirm 08/10/25 20:26 Lactated Ringers Administered 08/10/25 20:27 Dose 1,000 mls @ ud IV .STK-MED ONE Sodium Chloride Confirm 08/11/25 21:52 Sodium Chloride 0.9% 1000 Ml Administered 08/11/25 21:53 Dose 1,000 mls @ ud .ROUTE .STK-MED ONE Sodium Chloride 1,000 mls @ 50 mls/hr 08/11/25 22:00 08/11/25 22:00 Sodium Chloride 0.9% 1000 Ml IV 08/12/25 08:00 50 mls/hr .Q20H NIKKI Administration Lidocaine HCl 10 ml 08/10/25 18:10 Lidocaine Hcl 1% 20 Ml Mdv 20 Ml Ml IJ 09/09/25 18:09 PRN PRN as needed Lidocaine/Epinephrine Confirm 08/11/25 03:01 Lidocaine Hcl/Epinephrine 2% 20 Ml Vial Mpf Administered 08/11/25 03:02 Dose 20 ml .ROUTE .STK-MED ONE Loratadine 10 mg 08/11/25 07:56 08/11/25 08:11 Loratadine 10 Mg Tablet PO 08/12/25 07:55 10 mg QDP PRN Administration ITCHING Loratadine Confirm 08/11/25 08:10 Loratadine 10 Mg Tablet Administered 08/11/25 08:11 Dose 10 mg .ROUTE .STK-MED ONE Midazolam HCl Confirm 08/11/25 02:29 Midazolam Hcl 2 Mg/2 Ml Vial Administered 08/11/25 02:30 Dose 2 mg .ROUTE .STK-MED ONE Morphine Sulfate Confirm 08/11/25 02:26 Morphine Sulfate 5 Mg/10 Ml Pf Ampul Administered 08/11/25 02:27 Dose 5 mg .ROUTE .STK-MED ONE Morphine Sulfate 2 mg 08/11/25 07:56 Morphine Sulfate 2 Mg/Ml Inj IV 08/12/25 07:55 .Q30MIN PRN PRN SEVERE PAIN Nalbuphine HCl 5 - 10 mg 08/10/25 18:10 Nalbuphine Hcl 10 Mg/Ml Ampul IV 09/09/25 18:09 Q4H PRN PRN labor Nalbuphine HCl 5 mg 08/11/25 07:56 Nalbuphine Hcl 10 Mg/Ml Ampul IV 08/12/25 07:55 Q6H PRN PRN ITCHING Naloxone HCl 0.1 mg 08/11/25 07:56 Naloxone Hcl 0.4 Mg/Ml Ml IV 08/12/25 07:55 PRN PRN as needed Non-Formulary Medication 1 each 08/11/25 07:56 Hold Narcotic Analgesics/Sedatives 1 Each Each 08/12/25 07:55 PRN PRN neuraxial orders Ondansetron HCl 4 mg 08/10/25 18:10 08/11/25 04:26 Ondansetron Hcl 4 Mg/2 Ml Vial IV 09/09/25 18:09 4 mg Q4H PRN PRN Administration NAUSEA/VOMITING Ondansetron HCl 4 mg 08/11/25 07:56 08/11/25 08:11 Ondansetron Hcl 4 Mg/2 Ml Vial IV 08/12/25 07:55 4 mg PRN PRN Administration NAUSEA Oxycodone/Acetaminophen 1 - 2 tab 08/11/25 07:56 08/12/25 01:17 Oxycodone Hcl/Apap 5 Mg/325 Mg Tablet PO 08/12/25 07:55 1 tab Q4H PRN PRN Administration MODERATE PAIN Oxytocin Confirm 08/11/25 02:26 Oxytocin 10 Units/Ml 10 Units/Ml Vial Administered 08/11/25 02:27 Dose 20 units .ROUTE .STK-MED ONE Assessment/Plan (1) S/P section Current Visit: Yes Status: Acute Code(s): Z98.891 - HISTORY OF UTERINE SCAR FROM PREVIOUS SURGERY (2) Postoperative anemia due to chronic blood loss Current Visit: Yes Status: Acute Code(s): D50.0 - IRON DEFICIENCY ANEMIA SECONDARY TO BLOOD LOSS (CHRONIC)
--- NOTE | 2025-08-13 07:46 | PCM.DS ---
Discharge Summary Date of Admission: 08/10/25 17:50 Admitting Physician: SUSAN SLAUGHTER DO Consults: Consults on Case 08/10/25 18:11 Notify Anesthesia Provider VERONICA 08/11/25 08:40 Navigation ONCE Primary Care Provider: NO FAMILY DOCTOR Allergies Allergies iron Allergy (Severe, Verified 08/06/25 17:06) Anaphylactic Reaction Hospital Summary - Hospital Course Hospital Course: pt admitted on aug 10 at 38 plus weeks gestation with srom and had been progressing however after epidural pt was noted having nonreasurring tracing with prolonged bradycardia and subsequently undergone primary section without complication and delivered live baby girl on aug 11. during postop care pt noted being anemic and was given 2 units of prbc as she was allergic to oral and iv iron therapy. pt did well able to ambulate and tolerate diet and after 2 units given hgb at 8.7. pts incision was intact, clean with no sign of infection and at this time is stable for discharge with fu in office in 1 wk time. pt instructed to take folic acid 1mg daily and vit b12 1000mcg daily for anemia and was given percocet for pain management. all questions answered to her satisfaction and now stable for discharge. - Vitals & Intake/Output Vital Signs: Vital Signs Temperature 98.5 F 08/13/25 03:56 Pulse Rate 93 H 08/13/25 03:56 Respiratory Rate 17 08/13/25 03:56 Blood Pressure 115/59 08/13/25 03:56 O2 Sat by Pulse Oximetry 98 08/13/25 03:56 Intake & Output: Intake & Output 08/10/25 08/11/25 08/12/25 08/13/25 11:59 11:59 11:59 11:59 Intake Total 2252 3733 Output Total 925 3900 200 Balance 1327 -167 -200 Weight 78.018 kg - Lab Result Diagrams: 08/12/25 09:50 Lab Results-Last 24 Hrs: Lab Results-Last 24 Hours 08/10/25 08/12/25 Range/Units 19:00 09:50 WBC 13.9 H (3.98-10.04) x10^3/uL RBC 3.42 L (3.93-5.22) x10^6/uL Hgb 8.7 L (11.2-15.7) g/dL Hct 28.0 L (34.1-44.9) % MCV 81.9 (79.4-94.8) fL MCH 25.4 L (25.6-32.2) pg MCHC 31.1 L (32.2-35.5) g/dL RDW 14.7 H (11.7-14.4) % Plt Count 144 L (182-369) x10^3/uL MPV 11.5 (9.4-12.3) fL Gran % 85.2 H (34.0-71.1) % Immature Gran % (Auto) 0.9 H (0.001-0.429) % Nucleat RBC Rel Count 0.0 (0.00-0.2) % Eos # (Auto) 0.02 L (0.04-0.36) x10^3/uL Immature Gran # (Auto) 0.12 H (0.001-0.031) x10^3u/L Absolute Lymphs (auto) 1.25 (1.18-3.74) x10^3/uL Absolute Monos (auto) 0.64 (0.24-0.86) x10^3/uL Absolute Nucleated RBC 0.00 (0.00-0.012) x10^3u/L Lymphocytes % 9.0 L (19.3-51.7) % Monocytes % 4.6 L (4.7-12.5) % Eosinophils % 0.1 L (0.7-5.8) % Basophils % 0.2 (0.1-1.2) % Absolute Granulocytes 11.82 H (1.56-6.13) x10^3/uL Basophils # 0.03 (0.01-0.08) x10^3/uL RPR Non Reactive (Non Reactive) Micro Results-Entire Visit: Microbiology 08/10/25 18:10 Urine Culture - Final Urine, Void NO GROWTH - Procedures and Test Procedures and Tests throughout Hospitalization: Therapy Orders & Screens 08/11/25 03:10 Standby STAT Comment: Diagnosis: IUP Final Diagnosis/Problem List - Final Discharge Diagnosis/Problem (1) S/P section Current Visit: Yes Status: Acute Code(s): Z98.891 - HISTORY OF UTERINE SCAR FROM PREVIOUS SURGERY (2) Postoperative anemia due to chronic blood loss Current Visit: Yes Status: Acute Code(s): D50.0 - IRON DEFICIENCY ANEMIA SECONDARY TO BLOOD LOSS (CHRONIC) - Discharge Disposition: Home, Self-Care Condition: Stable Prescriptions: New Oxycodone HCl/Acetaminophen [Percocet 5-325 mg Tablet] 1 each PO Q6HPRN PRN #20 tablet MDD 4 PRN Reason: Moderate To Severe Pain No Action Ondansetron ODT 4 MG [Zofran Odt 4 mg] 4 mg PO Q6H PRN PRN #30 tablet PRN Reason: Vomiting Additional Instructions: no heavy lifting no driving for 10 days should take over the counter folic acid 1mg daily for 3 mnths should take over the counter vitamin b12 1000mcg once daily for 3 months should take at least vitamin c 300mg once daily with food Follow up with: DOCTOR,NO FAMILY [Primary Care Provider, UNKNOWN] SUSAN SLAUGHTER DO [ACTIVE STAFF, OBSTETRICS-GYNECOLOGY] - 1 Week Referral Note: should fu in 1 wk should take folic acid 1mg daily over the counter for 3 months should take vitamin b12 1000mcg once daily over the counter for 3 months should call me for any issues that may arise upon discharge no heavy lifting no driving for 10 days
== END 2025-08-13 10:00 | disposition home or self-care (01) | DRG 788 ==
LOC: OB 17:50 → OBSVTOIN 17:50
PROVIDERS: ADMIT Obstetrics & Gynecology; ATTEND Obstetrics & Gynecology
PROC: 10D00Z1 Extraction of Products of Conception, Low, Open Approach (ICD-10-PCS; principal; 2025-08-11)
DX: O76 Abnormality in fetal heart rate and rhythm complicating labor and delivery (principal); Z3A.39 39 weeks gestation of pregnancy; Z37.0 Single live birth; D50.0 Iron deficiency anemia secondary to blood loss (chronic)